=== PATIENT | male | born 1985 | race Caucasian/White ===

== ENCOUNTER → 2021-05-11 | Outpatient (CLI) | payer BC, OTHER | LOC: US 10:30 | DX: R10.11 Right upper quadrant pain (principal); R93.5 Abnormal findings on diagnostic imaging of other abdominal regions, including retroperitoneum | CPT/HCPCS: 76700 ==

== ENCOUNTER → 2021-06-05 | Outpatient (CLI) | payer OTHER | LOC: KOH-I 09:45 | DX: R10.9 Unspecified abdominal pain (principal); N13.30 Unspecified hydronephrosis | CPT/HCPCS: 74176 ==